=== PATIENT | female | born 1995 | race Caucasian/White ===

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

== ENCOUNTER 2017-04-11 00:23 | Observation (INO) | payer BC, OTHER ==
--- NOTE | 2017-04-11 00:26 | EDPHY ---
H & P HPI/ROS: HPI CHIEF COMPLAINT: Abdominal pain HISTORY OF PRESENT ILLNESS: This patient very pleasant 21-year-old female she is otherwise healthy except for asthma and depression, she presents emergency room with abdominal pain she states achy pain located in right lower quadrant. Initially was comma diffuse and now has localized to right lower quadrant. She has associated nausea with vomiting. No diarrhea. Did vomit 1 time prior to arrival. Pain started 3 hours ago. Pain is currently 8/10. Denies vaginal discharge or being . Denies urinary symptoms. Denies back pain. Pain is mainly located right lower quadrant. Past Medical History: Depression, asthma Past Surgical History: No recent surgery Social History: Denies daily use of drugs alcohol tobacco. [employer] student. Family History: Noncontributory ROS REVIEW OF SYSTEMS: A comprehensive 10 point review of systems is otherwise negative aside from elements mentioned in the history of present illness. Exam Constitutional appears nontoxic triage nursing summary reviewed, vital signs reviewed, awake/alert. Eyes normal conjunctivae and sclera, EOMI, PERRLA. HENT normal inspection, atraumatic, moist mucus membranes, no epistaxis, neck supple/ no meningismus, no raccoon eyes. Respiratory clear to auscultation bilaterally, normal breath sounds, no respiratory distress, no wheezing. Cardiovascular rate normal, regular rhythm, no murmur, no edema, distal pulses normal. Gastrointestinal mild tender palpation right lower quadrant , no rebound, no guarding, normal bowel sounds, no distension, no pulsatile mass. Genitourinary no CVA tenderness. Musculoskeletal no midline vertebral tenderness, full range of motion, no calf swelling, no tenderness of extremities, no meningismus, good pulses, neurovascularly intact. Skin pink, warm, & dry, no rash, skin atraumatic. Neurologic awake, alert and oriented x 3, AAOx3, moves all 4 extremities equally, motor intact, sensory intact, CN II-XII intact, normal cerebellar, normal vision, normal speech. Psychiatric normal mood/affect. Heme/Lymph/Immune no lymphadenopathy. Differential diagnosis includes but is not limited to and in no particular order : Bowel obstruction, appendicitis, gallbladder disease, diverticulitis, colitis , enteritis, perforated viscus, gastritis, GERD, esophagitis, urinary tract infection, pyelonephritis, kidney stones Medical Decision Making: Plan for this patient IV establishment IV fluid bolus , IV fentanyl 50 mcg for pain control, IV Zofran 4 mg for nausea, CBC and abdominal blood work, CT scan abdomen pelvis with IV contrast rule out acute appendicitis. Re-evaluation: 220: CT scan abdomen pelvis with IV contrast called to me by Dr. Zay Kim. No evidence of acute appendicitis. However diffusely can't visualize appendix. Gallbladder and biliary ducts look normal. No evidence ovarian cyst on CT. 0222AM: I did reexamine this patient. She still has ongoing right lower quadrant abdominal pain. Will perform ultrasound of pelvis and gallbladder to complete. Most likely consult General surgery 0336 ultrasound of the right lower quadrant shows acute appendicitis. IV Invanz has been ordered. Patient made NPO. Plan will be for admission the hospital Surgical consult. Ultrasound reviewed to me by Dr. Kim. Normal ovaries. Shows an 8 mm noncompressible hyperemic appendix. Concerning for acute appendicitis 0410: IV Invanz has been order. Surgeries been consult. 0425: Spoke with Dr. AMY Varghese about this patient's ultrasound concerning for acute appendicitis he will see and evaluate the patient. Source: Patient - Medical/Surgical History Other PMH: migraines, depression, asthma - Social History Smoking Status: Never smoked Constitutional: Initial Vital Signs Heart Rate 46 L 04/11/17 00:26 Respiratory Rate 16 04/11/17 00:26 Blood Pressure 125/71 H 04/11/17 00:26 O2 Sat (%) 98 04/11/17 00:26 O2 Delivery Mode Room Air O2 (L/minute) 2 Allergies/Adverse Reactions: No Known Allergies Allergy (Unverified 08/14/16 20:54) Medical Decision Making - Data Points Laboratory Results: Laboratory Results 04/11/17 01:00 04/11/17 01:00 04/11/17 04/11/17 04/11/17 02:20 01:00 01:00 WBC RBC Hgb Hct MCV MCH MCHC RDW Plt Count MPV Neut % (Auto) Lymph % (Auto) [place] % (Auto) Eos % (Auto) Baso % (Auto) Nucleat RBC Rel Count Absolute Neuts (auto) Absolute Lymphs (auto) Absolute Monos (auto) Absolute Eos (auto) Absolute Basos (auto) Absolute Nucleated RBC Immature Gran % Seg Neutrophils % Band Neutrophils % Lymphocytes % Monocytes % Eosinophils % Basophils % Metamyelocytes % Immature Gran # Absolute Seg Neuts Absolute Band Neuts Absolute Lymphocytes Absolute Monocytes Absolute Eosinophils Absolute Basophils Absolute Metamyelocyte RBC/WBC/PLT Morphology Atypical Lymphocytes Platelet Estimate Smear Review By Sodium 142 mEq/L mEq/L (134-144) Potassium 3.8 mEq/L mEq/L (3.5-5.2) Chloride 102 mEq/L mEq/L (97-110) Carbon Dioxide 27 mEq/l mEq/l (22-31) Anion Gap 13 mEq/L mEq/L (8-16) BUN 12 mg/dL mg/dL (7-23) Creatinine 0.8 mg/dL mg/dL (0.6-1.0) Estimated GFR > 60 Glucose 92 mg/dL mg/dL (70-100) Calcium 9.0 mg/dL mg/dL (8.5-10.4) Total Bilirubin 0.5 mg/dL mg/dL (0.1-1.4) Conjugated Bilirubin 0.1 mg/dL mg/dL (0.0-0.5) Unconjugated Bilirubin 0.4 mg/dL mg/dL (0.0-1.1) AST 71 IU/L H IU/L (14-46) ALT 80 IU/L H IU/L (9-52) Alkaline Phosphatase 194 IU/L H IU/L (38-126) Total Protein 7.0 g/dL g/dL (6.3-8.2) Albumin 3.9 g/dL g/dL (3.5-5.0) Lipase 149 IU/L IU/L (23-300) Beta HCG, Qual NEGATIVE Urine Color YELLOW Urine Appearance HAZY Urine pH 7.0 (5.0-7.5) Ur Specific [place] 1.025 (1.002-1.030) Urine Protein NEGATIVE (NEGATIVE) Urine Ketones NEGATIVE (NEGATIVE) Urine Blood 2+ H (NEGATIVE) Urine Nitrate NEGATIVE (NEGATIVE) Urine Bilirubin NEGATIVE (NEGATIVE) Urine Urobilinogen NEGATIVE EU EU (0.2-1.0) Ur Leukocyte Esterase NEGATIVE (NEGATIVE) Urine RBC 10-15 /hpf H /hpf (0-3) Urine WBC 1-3 /hpf /hpf (0-3) Ur Epithelial Cells 3+ /lpf H /lpf (NONE-1+) Urine Bacteria TRACE /hpf H /hpf (NONE SEEN) Urine Glucose NEGATIVE (NEGATIVE) 04/11/17 01:00 WBC 4.33 10^3/uL 10^3/uL (3.80-9.50) RBC 4.76 10^6/uL 10^6/uL (4.18-5.33) Hgb 15.1 g/dL g/dL (12.6-16.3) Hct 41.8 % % (38.0-47.0) MCV 87.8 fL fL (81.5-99.8) MCH 31.7 pg pg (27.9-34.1) MCHC 36.1 g/dL g/dL (32.4-36.7) RDW 12.4 % % (11.5-15.2) Plt Count 154 10^3/uL 10^3/uL (150-400) MPV 9.9 fL fL (8.7-11.7) Neut % (Auto) Not Reported Lymph % (Auto) Not Reported [place] % (Auto) Not Reported Eos % (Auto) Not Reported Baso % (Auto) Not Reported Nucleat RBC Rel Count 0.0 % % (0.0-0.2) Absolute Neuts (auto) Not Reported Absolute Lymphs (auto) Not Reported Absolute Monos (auto) Not Reported Absolute Eos (auto) Not Reported Absolute Basos (auto) Not Reported Absolute Nucleated RBC 0.00 10^3/uL 10^3/uL (0-0.01) Immature Gran % Not Reported Seg Neutrophils % 31 % % Band Neutrophils % 5 % % Lymphocytes % 49 % % Monocytes % 10 % % Eosinophils % 1 % % Basophils % 1 % % Metamyelocytes % 3 % % Immature Gran # Not Reported Absolute Seg Neuts 1.34 10^/uL L 10^/uL (1.70-6.50) Absolute Band Neuts 0.22 10^3/uL 10^3/uL (0.00-0.70) Absolute Lymphocytes 2.12 10^3/uL 10^3/uL (1.00-3.00) Absolute Monocytes 0.43 10^3/uL 10^3/uL (0.30-0.80) Absolute Eosinophils 0.04 10^3/uL 10^3/uL (0.03-0.40) Absolute Basophils 0.04 10^3/uL 10^3/uL (0.02-0.10) Absolute Metamyelocyte 0.13 10^3/mL H 10^3/mL (0.00-0.00) RBC/WBC/PLT Morphology NORMAL (NORMAL) Atypical Lymphocytes 2+ H Platelet Estimate DECREASED L (ADEQ) Smear Review By Pending Sodium Potassium Chloride Carbon Dioxide Anion Gap BUN Creatinine Estimated GFR Glucose Calcium Total Bilirubin Conjugated Bilirubin Unconjugated Bilirubin AST ALT Alkaline Phosphatase Total Protein Albumin Lipase Beta HCG, Qual Urine Color Urine Appearance Urine pH Ur Specific [place] Urine Protein Urine Ketones Urine Blood Urine Nitrate Urine Bilirubin Urine Urobilinogen Ur Leukocyte Esterase Urine RBC Urine WBC Ur Epithelial Cells Urine Bacteria Urine Glucose Medications Given: Discontinued Medications Fentanyl (Sublimaze) 50 mcg IVP EDNOW ONE Stop: 04/11/17 00:53 Last Admin: 04/11/17 00:58 Dose: 50 mcg Hydromorphone HCl (Dilaudid) 1 mg IVP EDNOW ONE Stop: 04/11/17 02:16 Last Admin: 04/11/17 02:18 Dose: 1 mg Hydromorphone HCl (Dilaudid) 1 mg IVP EDNOW ONE Stop: 04/11/17 03:20 Last Admin: 04/11/17 03:30 Dose: 1 mg Sodium Chloride (Ns) 1,000 mls @ 0 mls/hr IV EDNOW ONE; Wide Open PRN Reason: Protocol Stop: 04/11/17 00:53 Last Admin: 04/11/17 00:57 Dose: 1,000 mls Ertapenem 1 gm/ Sodium (Chloride) 100 mls @ 200 mls/hr IV EDNOW ONE PRN Reason: Protocol Stop: 04/11/17 03:52 Last Admin: 04/11/17 04:01 Dose: 100 mls Ondansetron HCl (Zofran) 4 mg IVP EDNOW ONE Stop: 04/11/17 00:53 Last Admin: 04/11/17 00:59 Dose: 4 mg Ondansetron HCl (Zofran) 4 mg IVP EDNOW ONE Stop: 04/11/17 03:30 Last Admin: 04/11/17 03:30 Dose: 4 mg Departure - Departure Disposition: [facility] In[facility] Acute Clinical Impression: Acute appendicitis Qualifiers: Acute appendicitis type: with localized peritonitis Qualified Code(s): K35.3 - Acute appendicitis with localized peritonitis Abdominal pain Qualifiers: Abdominal location: right lower quadrant Qualified Code(s): R10.31 - Right lower quadrant pain Condition: Fair Referrals: NONE *PRIMARY CARE P,. [Primary Care Provider] - As per Instructions
[2017-04-11] MEDS ORDERED: ONDANSETRON 4 MG/2 ML VIAL ONE ×2 (00:43→03:26)
[2017-04-11] MEDS ORDERED: fentaNYL 100 MCG/2 ML INJ ONE ×2 (00:44→06:07)
[2017-04-11] MEDS ORDERED: fentaNYL 100 MCG/2 ML INJ IVP ONE (00:52)
[2017-04-11] MEDS ORDERED: NS 1,000 ML IV ONE (00:52)
[2017-04-11] MEDS ORDERED: ONDANSETRON 4 MG/2 ML VIAL IVP ONE ×2 (00:52→03:29)
[2017-04-11 01:10] LABS: PLATELET COUNT 154 10^3/uL (150-400)
[2017-04-11] MEDS ORDERED: IOPAMIDOL (ISOVUE-300) 100 ML BTL ONE (01:14)
[2017-04-11] MEDS ORDERED: HYDROmorphONE/DILAUDID 1 MG/ML INJ IVP ONE ×2 (02:15→03:19)
[2017-04-11] MEDS ORDERED: HYDROmorphONE/DILAUDID 1 MG/ML INJ ONE (03:19)
[2017-04-11] MEDS ORDERED: ERTAPENEM 1 GM in NS 100 ML IV ONE (03:23)
[2017-04-11] MEDS ORDERED: BUPIVACAINE 0.5% 30 ML SDV ONE (05:29)
[2017-04-11] MEDS ORDERED: LR 1,000 ML IV SCH (05:30)
[2017-04-11] MEDS: PROMETHAZINE HCL 25 MG/ML INJ IV PRN ×3 (05:40→20:58)
[2017-04-11] MEDS ORDERED: PROPOFOL/EMULSION 500 MG/50 ML BOTTLE IV ONE (06:05)
--- NOTE | 2017-04-11 06:15 | PDGENHP ---
History & Physical Chief Complaint: ABD PAIN AND NAUSEA History of Present Illness: 21 FEMALE WITH ABD PAIN AND SEVERE NAUSEA < 12HRS/ US SHOWS ACUTE APPE/ PREG-/ LFTs UP BUT GB US OK/ NO PRIOR ABD SURG/ ADMIT FOR LAP APPE/ RISKS AND OPTIONS FULLY DISCUSSED Pertinent Past, Social, Family History: PMH: WISDOM TEETH. MEDS ANTDEPRESSANT. NKA. ROS: - 10 PT REVIEW, NONSMOKER, IUD. FAM HX: NONCONTRIBUTORY Relevant Physical Exam: GEN: 21 FEMALE IN DISTRESS WITH SEVERE NAUSEA. HEENT: NONICTERIC, NO ORAL LESIONS, NO ADENOPATHY, PERRLA. CHEST CLEAR. COR RR. ABD : MILDLY DISTENDED, TENDER RLQ WITH REBOUND AND GUARDING. EXTR OK. NEURO PHYSIOLOGIC. SKIN WO RASH OR LESIONS Cardiorespiratory Assessment: IMP: ACUTE APPE. PLAN LAP APPE/ RISKS AND OPTIONS FULLY DISCUSSED
--- NOTE | 2017-04-11 06:40 | PDANEPAE ---
ANE History of Present Illness here for lap appendectomy ANE Past Medical History - Cardiovascular History Hx Hypertension: No Hx Arrhythmias: No Hx Chest Pain: No Hx Coronary Artery / Peripheral Vascular Disease: No Hx CHF / Valvular Disease: No Hx Palpitations: No - Pulmonary History Hx COPD: No Hx Asthma/Reactive Airway Disease: No Hx Recent Upper Respiratory Infection: No Hx Oxygen in Use at Home: No Hx Sleep Apnea: No Sleep Apnea Screening Result - Last Documented: Negative - Endocrine History Hx Diabetes: No Hypothyroid: No Hyperthyroid: No - Renal History Hx Renal Disorders: No - Liver History Hx Hepatic Disorders: No - Neurological & Psychiatric Hx Hx Neurological and Psychiatric Disorders: No - Cancer History Hx Cancer: No - Congenital Disorder History Hx Congenital Disorders: No ANE Review of Systems Review of systems is: negative Review of Systems: - Exercise capacity Exercise capacity: >=4 METS ANE Patient History - Allergies Allergies/Adverse Reactions: No Known Allergies Allergy (Unverified 08/14/16 20:54) - Home Medications Home medications: home medication list seen and reviewed - NPO status NPO Status: no food or drink >8 hours NPO Since - Liquids (Date): 04/10/17 NPO Since - Liquids (Time): 19:00 NPO Since - Solids (Date): 04/10/17 NPO Since - Solids (Time): 19:00 - Anes Hx Anes Hx: no prior problems - Smoking Hx Smoking Status: Never smoked ANE Labs/Vital Signs - Labs Result Diagrams: 04/11/17 01:00 04/11/17 01:00 - Vital Signs Blood Pressure: 140/86 Heart Rate: 50 Respiratory Rate: 16 O2 Sat (%): 98 Height: 162.56 cm Weight: 49.895 kg ANE Physical Exam - Airway Neck exam: FROM Mallampati Score: Class 1 - Pulmonary Pulmonary: no respiratory distress - Cardiovascular Cardiovascular: regular rate and rhythym - ASA Status ASA Status: II, E ANE Anesthesia Plan Anesthesia Plan: general endotracheal anesthesia Urgent/Emergent Case: Ariana kaiser completed preop but documented later for safe timely pt care
[2017-04-11] MEDS ORDERED: PROPOFOL 200 MG/20 ML VIAL ONE (06:52)
[2017-04-11] MEDS ORDERED: ALBUTEROL 3 ML DEYVIAL IH PRN (07:16)
[2017-04-11] MEDS ORDERED: ONDANSETRON 4 MG/2 ML VIAL IVP PRN (07:16)
[2017-04-11] MEDS ORDERED: NALOXONE HCL 0.4 MG/ML INJ IVP PRN (07:16)
[2017-04-11] MEDS ORDERED: PROMETHAZINE HCL 25 MG/ML INJ IVP PRN (07:16)
[2017-04-11] MEDS ORDERED: HYDROmorphONE/DILAUDID 1 MG/ML INJ IVP PRN (07:16)
[2017-04-11] MEDS ORDERED: LR 500 ML IV PRN (07:16)
--- NOTE | 2017-04-11 07:20 | POSTANESTH ---
Post Anesthetic Evaluation Cardiovascular Status: Normal, Stable Respiratory Status: Normal, Stable Level of Consciousness/Mental Status: Can Participate in Eval Pain Control: Adequate, Prn Tx Ordered Nausea/Vomiting Control: Adequate, Prn Tx Ordered Complications Possibly Related to Anesthesia: None Noted
--- NOTE | 2017-04-11 07:24 | POSTOPPROG ---
Post Op Note Date of Operation: 04/11/17 Surgeon: Jf Varghese Anesthesiologist: BECCA Anesthesia: GET(General Endotracheal) Pre-op Diagnosis: ACUTE APPE Post-op Diagnosis: SAME Indication: PAIN Procedure: LAP APPE Findings: ACUTE APPE Inf/Abcess present in the surg proc area at time of surgery?: Yes Depth: Organ Space EBL: Minimal Complications: 0 Specimen(s): APPENDIX
[2017-04-11] MEDS: D5W 1/2 NS W/ 20 KCl/L 1,000 ML IV SCH ×2 (08:57→20:57)
[2017-04-11] MEDS: KETOROLAC 15 MG/1 ML SDV IVP SCH ×2 (11:38→18:23)
--- NOTE | 2017-04-11 13:45 | SOAPPROG ---
SOAP Progress Note Assessment/Plan: Assessment/Plan: 21 Y F s/p lap appy, POD#0. AFVSS. Wounds intact. Pain controlled. Continue routine post op care. Dispo: pending. Likely tomorrow, potentially later this evening. S: no complaints. O: alert, nad, sleepy no wob rrr abd soft, inc cdi 04/11/17 13:43 Objective: Vital Signs Temp Pulse Resp BP Pulse Ox 36.5 C 59 L 18 114/73 97 04/11/17 13:08 04/11/17 13:08 04/11/17 13:08 04/11/17 13:08 04/11/17 13:08 04/10/17 04/11/17 04/12/17 05:59 05:59 05:59 Intake Total 100 1125 Output Total 305 Balance 100 820 ICD10 Worksheet Patient Problems: Problems Problem Status Onset Abdominal pain Acute Acute appendicitis Acute
--- NOTE | 2017-04-11 18:19 | ASMTCASEMG ---
Living Arrangements What is your living Answers: With Other (Not Family) arrangement? Who do you live with? Type Of Residence What kind of residence do Answers: Dormitory you live in? Case Management Evaluation Functional: Able to Answers: Yes return Home with Prior Level of Function/Care Discharge Plan Comments Coordination Status Comments Notes: Patient here for acute appy having surgery today. patient should discharge on . 04/12/2017 with no additional needs. Case managment will follow. Date Signed: 04/11/2017 06:18 PM Electronically Signed By:VARUN Mondragon
[2017-04-11 20:35] VITALS: RESP 16
[2017-04-11] MEDS: OXYCODONE/APAP 5/325 TAB PO PRN ×2 (20:57→22:08)
[2017-04-12] MEDS: KETOROLAC 15 MG/1 ML SDV IVP SCH ×3 (01:49→11:12)
[2017-04-12 03:15] VITALS: PULSE 46; O2SAT 95
[2017-04-12 07:56] VITALS: BP 99/62; TEMP 97.8
--- NOTE | 2017-04-12 08:00 | SOAPPROG ---
SOAP Progress Note Assessment/Plan: Assessment/Plan: 21 Y F s/p lap appy, POD#1. doing well. tolerating diet. pain controlled. d/c to home today. rx norco, ibuprofen. S: no complaints. O: alert, nad, sleepy ctab rrr abd soft, inc cdi, +BS 04/12/17 07:59 Objective: Vital Signs Temp Pulse Resp BP Pulse Ox 36.6 C 46 L 16 99/62 L 95 04/12/17 07:55 04/12/17 07:55 04/12/17 07:55 04/12/17 07:55 04/12/17 07:55 04/11/17 04/12/17 04/13/17 05:59 05:59 05:59 Intake Total 100 2775 Output Total 305 Balance 100 2470 ICD10 Worksheet Patient Problems: Problems Problem Status Onset Abdominal pain Acute Acute appendicitis Acute
--- NOTE | 2017-04-12 12:00 | ASDISCHSUM ---
Discharge Information Plan Status:Home with No Needs Medically Cleared to Leave: Discharge Date: D/C Disposition: ADT D/C Disposition:Home, Routine, Self-Care Projected Discharge Date: Transportation at D/C: Discharge Delay Reason: Follow-Up Date: Discharge Slot: Final Diagnosis: Placement Information Patient Contact Information Contact Name:MADELYN Relationship:Mother Address: Home Phone: City: [facility] Phone: [facility] Code: Email: Financial Information Financial Class:HMO and PPO Plans Primary Plan Desc: OUT OF STATE PPO Primary Plan Number:[id number] Secondary Plan Desc: Secondary Plan Number: Assessment Information [facility] Initial CM Assessment Living Arrangements What is your living Answers: With Other (Not Family) arrangement? Who do you live with? Type Of Residence What kind of residence do Answers: Dormitory you live in? Case Management Evaluation Functional: Able to Answers: Yes return Home with Prior Level of Function/Care Discharge Plan Comments Coordination Status Comments Notes: Patient here for acute appy having surgery today. patient should discharge on . 04/12/2017 with no additional needs. Case managment will follow. Date Signed: 04/11/2017 06:18 PM Electronically Signed By:VARUN Mondragon Intervention Information
--- NOTE | 2017-04-12 12:00 | ASDISCHSUM ---
Discharge Information Plan Status:Home with No Needs Medically Cleared to Leave: Discharge Date: D/C Disposition: ADT D/C Disposition:Home, Routine, Self-Care Projected Discharge Date: Transportation at D/C: Discharge Delay Reason: Follow-Up Date: Discharge Slot: Final Diagnosis: Placement Information Patient Contact Information Contact Name:MADELYN Relationship:Mother Address: Home Phone: City: [facility] Phone: [facility] Code: Email: Financial Information Financial Class:HMO and PPO Plans Primary Plan Desc: OUT OF STATE PPO Primary Plan Number:[id number] Secondary Plan Desc: Secondary Plan Number: Assessment Information [facility] Initial CM Assessment Living Arrangements What is your living Answers: With Other (Not Family) arrangement? Who do you live with? Type Of Residence What kind of residence do Answers: Dormitory you live in? Case Management Evaluation Functional: Able to Answers: Yes return Home with Prior Level of Function/Care Discharge Plan Comments Coordination Status Comments Notes: Patient here for acute appy having surgery today. patient should discharge on . 04/12/2017 with no additional needs. Case managment will follow. Date Signed: 04/11/2017 06:18 PM Electronically Signed By:VARUN Mondragon Intervention Information
--- NOTE | 2017-04-12 12:00 | ASDISCHSUM ---
Discharge Information Plan Status:Home with No Needs Medically Cleared to Leave: Discharge Date: D/C Disposition: ADT D/C Disposition:Home, Routine, Self-Care Projected Discharge Date: Transportation at D/C: Discharge Delay Reason: Follow-Up Date: Discharge Slot: Final Diagnosis: Placement Information Patient Contact Information Contact Name:MADELYN Relationship:Mother Address: Home Phone: City: [facility] Phone: [facility] Code: Email: Financial Information Financial Class:HMO and PPO Plans Primary Plan Desc: OUT OF STATE PPO Primary Plan Number:[id number] Secondary Plan Desc: Secondary Plan Number: Assessment Information [facility] Initial CM Assessment Living Arrangements What is your living Answers: With Other (Not Family) arrangement? Who do you live with? Type Of Residence What kind of residence do Answers: Dormitory you live in? Case Management Evaluation Functional: Able to Answers: Yes return Home with Prior Level of Function/Care Discharge Plan Comments Coordination Status Comments Notes: Patient here for acute appy having surgery today. patient should discharge on . 04/12/2017 with no additional needs. Case managment will follow. Date Signed: 04/11/2017 06:18 PM Electronically Signed By:VARUN Mondragon Intervention Information
== END 2017-04-12 12:50 | disposition home or self-care (01) ==
LOC: INTOOBSV 04:21 → F1N 04:56
PROVIDERS: ADMIT Surgery; ATTEND Surgery
PROC: 0DTJ4ZZ Resection of Appendix, Percutaneous Endoscopic Approach (ICD-10-PCS; principal; 2017-04-11 06:45)
DX: K35.80 Unspecified acute appendicitis (principal); T83.32XA Displacement of intrauterine contraceptive device, initial encounter; F32.9 Major depressive disorder, single episode, unspecified; J45.909 Unspecified asthma, uncomplicated
CPT/HCPCS: 44970; 74177; 76700; 76856; 96361; 96374; 96375; 96376; 99285; G0378; J1170; J1335; J1885; J2405; J2550; J2704; J3010; Q9967

== ENCOUNTER 2017-07-08 14:37 | Emergency (ER) | payer BC ==
[2017-07-08 14:43] VITALS: BP 91/67; PULSE 71; RESP 16; TEMP 97.9; O2SAT 96
[2017-07-08] MEDS ORDERED: IBUPROFEN 600 MG TAB PO ONE (14:49)
--- NOTE | 2017-07-08 15:01 | EDPHY ---
H & P Stated Complaint: rolled ankle last night,heard a loud snap Time Seen by Provider: 07/08/17 14:45 HPI/ROS: CHIEF COMPLAINT: Left ankle pain HISTORY OF PRESENT ILLNESS: The patient is a 22-year-old female who was wearing heels last night and twisted her left ankle. She states that she heard a pop. This morning she has swelling and pain to the lateral malleolus and distally. She denies foot pain. She denies medial or anterior pain. She denies knee pain. She is able to limp. REVIEW OF SYSTEMS: Constitutional: denies: chills, fever, recent illness, recent injury EENTM: denies: blurred vision, double vision, nose congestion Respiratory: denies: cough, shortness of breath Cardiac: denies: chest pain, irregular heart rate, lightheadedness, palpitations Gastrointestinal/Abdominal: denies: abdominal pain, diarrhea, nausea, vomiting, blood streaked stools Genitourinary: denies: dysuria, frequency, hematuria, pain Musculoskeletal: See HPI Skin: denies: lesions, rash, jaundice, bruising Neurological: denies: headache, numbness, paresthesia, tingling, dizziness, weakness Hematologic/Lymphatic: denies: blood clots, easy bleeding, easy bruising Immunologic/allergic: denies: HIV/AIDS, transplant EXAM: GENERAL: Well-appearing, well-nourished and in no acute distress. HEAD: Atraumatic, normocephalic. EYES: Pupils equal round and reactive to light, extraocular movements intact, sclera anicteric, conjunctiva are normal. ENT: TMs normal, nares patent, oropharynx clear without exudates. Moist mucous membranes. NECK: Normal range of motion, supple without lymphadenopathy or JVD. LUNGS: Breath sounds clear to auscultation bilaterally and equal. No wheezes rales or rhonchi. HEART: Regular rate and rhythm without murmurs, rubs or gallops. ABDOMEN: Soft, nontender, normoactive bowel sounds. No guarding, no rebound. No masses appreciated. BACK: No CVA tenderness, no spinal tenderness, step-offs or deformities EXTREMITIES: Swelling distal to the lateral malleolus. Some bony tenderness. No erythema. Normal sensation and pulses distally. Normal capillary refill. NEUROLOGICAL: Cranial nerves II through XII grossly intact. Normal speech, normal gait. 5/5 strength, normal movement in all extremities, normal sensation PSYCH: Normal mood, normal affect. SKIN: Warm, dry, normal turgor, no visible rashes or lesions. Source: Patient Exam Limitations: No limitations - Personal History LMP (Females 10-55): IUD In Place Current Tetanus/Diphtheria Vaccine: Yes Current Tetanus Diphtheria and Acellular Pertussis (TDAP): Yes - Medical/Surgical History Hx Asthma: Yes Hx Chronic Respiratory Disease: No Hx Diabetes: No Hx Cardiac Disease: No Hx Renal Disease: No Hx Cirrhosis: No Hx Alcoholism: No Hx HIV/AIDS: No Hx Splenectomy or Spleen Trauma: No Other PMH: migraines, depression, asthma - Family History Significant Family History: No pertinent family hx - Social History Smoking Status: Never smoked Alcohol Use: Sober Constitutional: Initial Vital Signs Temperature (C) 36.6 C 07/08/17 14:41 Heart Rate 71 07/08/17 14:41 Respiratory Rate 16 07/08/17 14:41 Blood Pressure 91/67 L 07/08/17 14:41 O2 Sat (%) 96 07/08/17 14:41 O2 Delivery Mode Room Air Allergies/Adverse Reactions: No Known Allergies Allergy (Unverified 08/14/16 20:54) Home Medications: Medication Instructions Recorded Doxycycline Monohydrate 07/08/17 Hydrocodone/APAP 5/325 [[place] 1 - 2 tab PO Q4H PRN #7 tab 07/08/17 5/325 (RX)] Medical Decision Making - Diagnostics Imaging Results: Imaging Impressions Ankle X-Ray 07/08/17 14:46 Impression: Lateral ankle sprain. No acute fracture. Imaging: I viewed and interpreted images myself Procedures: Procedure: Splint placement. A air ankle splint was applied. After application of the splint I returned and re-examined the patient. The splint was adequately immobilizing the joint and distal to the splint the patient's circulation and sensation was intact. ED Course/Re-evaluation: Patient's x-rays were reviewed at the bedside. No obvious fracture seen. We discussed treatment for sprains. I will place her in a brace and give her crutches as necessary. I advised her to weightbearing as tolerated and take anti-inflammatories, elevate, ice and also rest. Will also give her Vicodin to take at night. She is happy with this plan and declines any further workup or testing at this time Differential Diagnosis: Partial list of the Differential diagnosis considered include but were not limited to; ankle sprain, fracture and although unlikely based on the history and physical exam, I also considered ft fracture, Achilles rupture, vascular injury, nerve injury, infection. I discussed these differential diagnoses and the plan with the patient as well as the usual and expected course. The patient understands that the diagnosis is provisional and that in medicine we are not always correct and that further workup is often warranted. Usual and customary warnings were given. All of the patient's questions were answered. The patient was instructed to return to the emergency department should the symptoms at all worsen or return, otherwise to followup with the physician as we discussed. - Data Points Medications Given: Discontinued Medications Ibuprofen (Motrin) 600 mg PO EDNOW ONE Stop: 07/08/17 14:50 Last Admin: 07/08/17 14:51 Dose: 600 mg Departure - Departure Disposition: Home, Routine, Self-Care Clinical Impression: Sprain of left ankle Qualifiers: Encounter type: initial encounter Involved ligament of ankle: anterior talofibular ligament Qualified Code(s): S93.492A - Sprain of other ligament of left ankle, initial encounter Condition: Fair Instructions: Ankle Sprain (DC) Referrals: Stephen Ivey MD [Medical Doctor] - 5-7 days, if not improved Prescriptions: Hydrocodone/APAP 5/325 [[place] 5/325 (RX)] 1 - 2 tab PO Q4H PRN #7 tab PRN Reason: Pain, Moderate
== END 2017-07-08 15:12 | disposition home or self-care (01) ==
DX: S93.492A Sprain of other ligament of left ankle, initial encounter (principal); J45.909 Unspecified asthma, uncomplicated; X58.XXXA Exposure to other specified factors, initial encounter

== ENCOUNTER 2017-07-22 04:23 | Inpatient (IN) | payer BC ==
--- NOTE | 2017-07-22 04:25 | EDPHY ---
H & P Source: Patient - Medical/Surgical History Hx Asthma: Yes Hx Chronic Respiratory Disease: No Hx Diabetes: No Hx Cardiac Disease: No Hx Renal Disease: No Hx Cirrhosis: No Hx Alcoholism: No Hx HIV/AIDS: No Hx Splenectomy or Spleen Trauma: No Other PMH: migraines, depression, asthma - Social History Smoking Status: Never smoked HPI/ROS: HPI CHIEF COMPLAINT: Self-inflicted left arm laceration, anxiety, depression, alcohol intoxication HISTORY OF PRESENT ILLNESS: Patient is a 22-year-old female, [employer] student, she presents to the emergency room with a self-inflicted left arm laceration. She presents by private vehicle with her roommate. Her roommate reports she has a history of anxiety and depression and that she has been out drinking alcohol this evening and after returning home somehow cut her left arm. (self-inflicted with razor blade) She knocked on her door and got upset, was anxious crying and screaming and was brought to the emergency room. Upon arrival to the emergency room the patient is hyperventilating she is unable to tell me any of her history the history comes from her roommate at bedside. She appears very anxious. The left forearm she has laceration horizontally oriented self-inflicted with a razor blade there are multiple superficial lacerations present that do not need suture, however there is 1 deeper that is approximately 4 cm in horizontal length. No tendon or arterial involvement on exam. Past Medical History: History of anxiety and depression untreated Past Surgical History: No recent surgery Social History: [employer] student, alcohol this evening. Family History: Noncontributory ROS REVIEW OF SYSTEMS: Limited due to patient's mental state of acute anxiety, crying. Intoxication Exam Constitutional anxious, tearful, crying, somewhat agitated, intoxicated triage nursing summary reviewed, vital signs reviewed, awake/alert. Eyes normal conjunctivae and sclera, EOMI, PERRLA. HENT normal inspection, atraumatic, moist mucus membranes, no epistaxis, neck supple/ no meningismus, no raccoon eyes. Respiratory clear to auscultation bilaterally, normal breath sounds, no respiratory distress, no wheezing. Cardiovascular rate normal, regular rhythm, no murmur, no edema, distal pulses normal. Gastrointestinal soft, non-tender, no rebound, no guarding, normal bowel sounds, no distension, no pulsatile mass. Genitourinary no CVA tenderness. Musculoskeletal no midline vertebral tenderness, full range of motion, no calf swelling, no tenderness of extremities, no meningismus, good pulses, neurovascularly intact. Skin To the left forearm she has laceration horizontally oriented self- inflicted with a razor blade there are multiple superficial lacerations present that do not need suture however there is 1 deeper 1 approximately 4 cm in horizontal length. No tendon or arterial involvement on exam. Neurologic smells of alcohol, awake, alert and oriented x 3, AAOx3, moves all 4 extremities equally, motor intact, sensory intact, CN II-XII intact, normal cerebellar, normal vision, normal speech. Psychiatric anxious, crying, somewhat agitated, intoxicated Heme/Lymph/Immune no lymphadenopathy. Differential Diagnosis: Includes but is not limited to in a particular order self-inflicted left arm laceration, self-harm, depression, mood disorder, acute alcohol intoxication Medical Decision Making: Plan for this patient she will have an IV established with blood draw for medical clearance should be placed on M1 hold for laceration self-inflicted to her left arm with intention to harm, check alcohol level and drug screen and re-evaluate. Re-evaluation: 0430: M1 hold placed by myself. Laceration Repair Procedure: Verbal Consent was obtained, Under sterile conditions, The patient had lidocaine with epinephrine used approximately 4ccs to local anesthetize the left forearm horizontal 4CM Laceration. The wound was copiously irrigated with sterile fluid, the wound was explored for foreign bodies there were none visualized, the wound was explored with a sterile glove to the base. There are no deep structures involved, including no arterial injury. FOUR 6.O PROLENE interrupted Sutures were placed in this patient's laceration. She had good close approximation of the wound edges. She Tolerated this well. Understands keep the wound, clean, dry, protected. Sutures removed in 12-14 days. 0518: Serum alcohol level 105. 0700AM: Signed over to Dr. Eddy. Patient on M1 hold needs mental health evaluation once sober. Drug screen noted to be positive for cocaine. (Yogesh Del Toro) Constitutional: Initial Vital Signs Temperature (C) 37.0 C 07/22/17 04:31 Heart Rate 93 07/22/17 04:31 Respiratory Rate 25 H 07/22/17 04:31 Blood Pressure 115/74 07/22/17 04:31 O2 Sat (%) 100 07/22/17 04:31 O2 Delivery Mode Room Air O2 (L/minute) 2 Allergies/Adverse Reactions: No Known Allergies Allergy (Unverified 07/22/17 04:31) Home Medications: Medication Instructions Recorded Doxycycline Monohydrate 07/08/17 Hydrocodone/APAP 5/325 [[place] 1 - 2 tab PO Q4H PRN #7 tab 07/08/17 5/325 (RX)] Medical Decision Making Other Provider: Care assumed at 6:30 a.m. With plan for psychiatric evaluation once clinically sober. The patient will be transferred to [facility] for inpatient psychiatric hospital bed not available at this facility, in stable condition; accepting physician is Dr. Zuñiga. (Doug Eddy) - Data Points Laboratory Results: Laboratory Results 07/22/17 04:48 07/22/17 04:48 07/22/17 07/22/17 07/22/17 05:45 04:48 04:48 WBC RBC Hgb Hct MCV MCH MCHC RDW Plt Count MPV Neut % (Auto) Lymph % (Auto) [place] % (Auto) Eos % (Auto) Baso % (Auto) Nucleat RBC Rel Count Absolute Neuts (auto) Absolute Lymphs (auto) Absolute Monos (auto) Absolute Eos (auto) Absolute Basos (auto) Absolute Nucleated RBC Immature Gran % Immature Gran # Sodium 146 mEq/L H mEq/L (135-145) Potassium 3.8 mEq/L mEq/L (3.5-5.2) Chloride 112 mEq/L H mEq/L (97-110) Carbon Dioxide 14 mEq/l L mEq/l (22-31) Anion Gap 20 mEq/L H mEq/L (8-16) BUN 11 mg/dL mg/dL (7-23) Creatinine 0.8 mg/dL mg/dL (0.6-1.0) Estimated GFR > 60 Glucose 97 mg/dL mg/dL (70-100) Calcium 9.9 mg/dL mg/dL (8.5-10.4) Beta HCG, Qual NEGATIVE Urine Opiates Screen NEGATIVE (NEGATIVE) Urine Barbiturates NEGATIVE (NEGATIVE) Ur Phencyclidine Scrn NEGATIVE (NEGATIVE) Ur Amphetamine Screen NEGATIVE (NEGATIVE) U Benzodiazepines Scrn NEGATIVE (NEGATIVE) Urine Cocaine Screen NON-NEGATIVE H (NEGATIVE) U Marijuana (THC) Screen NEGATIVE (NEGATIVE) Ethyl Alcohol 105 mg/dL H mg/dL (0-10) 07/22/17 04:48 WBC 7.90 10^3/uL 10^3/uL (3.80-9.50) RBC 5.07 10^6/uL 10^6/uL (4.18-5.33) Hgb 15.5 g/dL g/dL (12.6-16.3) Hct 43.1 % % (38.0-47.0) MCV 85.0 fL fL (81.5-99.8) MCH 30.6 pg pg (27.9-34.1) MCHC 36.0 g/dL g/dL (32.4-36.7) RDW 12.3 % % (11.5-15.2) Plt Count 250 10^3/uL 10^3/uL (150-400) MPV 9.3 fL fL (8.7-11.7) Neut % (Auto) 55.7 % % (39.3-74.2) Lymph % (Auto) 39.0 % % (15.0-45.0) [place] % (Auto) 4.2 % L % (4.5-13.0) Eos % (Auto) 0.4 % L % (0.6-7.6) Baso % (Auto) 0.3 % % (0.3-1.7) Nucleat RBC Rel Count 0.0 % % (0.0-0.2) Absolute Neuts (auto) 4.41 10^3/uL 10^3/uL (1.70-6.50) Absolute Lymphs (auto) 3.08 10^3/uL H 10^3/uL (1.00-3.00) Absolute Monos (auto) 0.33 10^3/uL 10^3/uL (0.30-0.80) Absolute Eos (auto) 0.03 10^3/uL 10^3/uL (0.03-0.40) Absolute Basos (auto) 0.02 10^3/uL 10^3/uL (0.02-0.10) Absolute Nucleated RBC 0.00 10^3/uL 10^3/uL (0-0.01) Immature Gran % 0.4 % % (0.0-1.1) Immature Gran # 0.03 10^3/uL 10^3/uL (0.00-0.10) Sodium Potassium Chloride Carbon Dioxide Anion Gap BUN Creatinine Estimated GFR Glucose Calcium Beta HCG, Qual Urine Opiates Screen Urine Barbiturates Ur Phencyclidine Scrn Ur Amphetamine Screen U Benzodiazepines Scrn Urine Cocaine Screen U Marijuana (THC) Screen Ethyl Alcohol Medications Given: Discontinued Medications Lorazepam (Ativan) 1 mg PO EDNOW ONE Stop: 07/22/17 04:37 Last Admin: 07/22/17 04:42 Dose: 1 mg Departure - Departure Disposition: [facility] IP Clinical Impression: Cocaine abuse Arm laceration Qualifiers: Encounter type: initial encounter Laterality: left Qualified Code(s): S41.112A - Laceration without foreign body of left upper arm, initial encounter Alcohol intoxication Qualifiers: Complication of substance-induced condition: uncomplicated Qualified Code(s): F10.920 - Alcohol use, unspecified with intoxication, uncomplicated Condition: Fair Instructions: Care For Your Stitches (ED), Laceration (ED), Cocaine Abuse (ED) Additional Instructions: 1. Sutures need to be removed in 12-14 days. 2. Keep her wound clean, protected and dry. Wash with warm soapy water. Gently. Referrals: Patient,NotPresent [Primary Care Provider] - As per Instructions
[2017-07-22] MEDS ORDERED: LORazepam 1 MG TAB PO ONE (04:36)
[2017-07-22 04:57] LABS: PLATELET COUNT 250 10^3/uL (150-400)
[2017-07-22] MEDS ORDERED: NICOTINE POLACRILEX 2 MG GUM B PRN (16:00)
[2017-07-22] MEDS ORDERED: MAGNESIUM HYDROXIDE 30 ML UDCUP PO PRN (16:00)
[2017-07-22] MEDS ORDERED: OLANZapine DISINTEGR 10 MG TAB PO PRN (16:00)
[2017-07-22] MEDS ORDERED: MAG HYDROX/AL HYDROX/SIMETH 30 ML UDCUP PO PRN (16:00)
[2017-07-22] MEDS ORDERED: ACETAMINOPHEN 325 MG TAB PO PRN (16:00)
[2017-07-22] MEDS: LORazepam 0.5 MG TAB PO PRN (22:30)
[2017-07-22] MEDS: MELATONIN 3 MG TAB PO PRN (22:30)
[2017-07-23 06:58] VITALS: O2SAT 98
--- NOTE | 2017-07-23 08:41 | PDHOSCONS ---
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 Her insurance only covers a very small portion of this particular medicine. Last night she went out and had asked some alcohol and cocaine and got very upset and anxious. She went home and got even more anxious and sad and up some cutting on her left arm with a razor. She was seen in the ER where the wounds were attended to with no evidence of arterial venous or tendon injury. She presented to the ER. She denied any suicidal ideation. She has been admitted to the [facility] where I am seeing her. The patient denies having any recent episodes such as assault or rape or any other event that would require evaluation or assessment or assistance here. She has tested negative for in the ER. She denies any other symptoms of acute illness on of comprehensive review. Her substance use is intermittent not daily and she does not use any intravenous History Information - Allergies/Home Medication List Allergies/Adverse Reactions: No Known Allergies Allergy (Unverified 07/22/17 04:31) Home Medications: Doxycycline Hyclate [Vibramycin 100 MG (*)] 100 mg PO DAILY 07/22/17 [Last Taken Unknown] I have personally reviewed and updated: family history, medical history, social history, surgical history - Past Medical History asthma Additional medical history: Milder not currently needing to use any inhalers - Surgical History Reports: no pertinent surgical hx - Family History Positive for: non-pertinent - Social History Smoking Status: Never smoked Alcohol Use: Occasionally Drug Use: Cocaine (Occasional never IV) Review of Systems Review of Systems: ROS: 10pt was reviewed & negative except for what was stated in HPI & below Physical Exam Physical Exam: Temp Pulse Resp BP Pulse Ox 36.3 C 44 L 14 104/63 98 07/23/17 06:00 07/23/17 06:00 07/23/17 06:00 07/23/17 06:00 07/23/17 06:00 Constitutional: no apparent distress, appears nourished, not in pain, other ( Remorseful over her episode yesterday) Eyes: PERRL, anicteric sclera, EOMI Ears, Nose, Mouth, Throat: moist mucous membranes, hearing normal Cardiovascular: regular rate and rhythym, no murmur, rub, or gallop, No edema Respiratory: no respiratory distress, no rales or rhonchi, clear to auscultation Gastrointestinal: normoactive bowel sounds, soft, non-tender abdomen, no palpable masses Genitourinary: no bladder fullness Skin: warm, normal color, other (On her flexor surface of her left forearm around midshaft, she has an area of skin which appears scarred from previous cutting. There are 6 new horizontal lacerations that are self-inflicted in this area now. There is no bleeding, no evidence of infection. There is suture approximating 1 of these lesions. There is no other evidence of cutting herself injury at this time) Neurologic: AAOx3, CN II-XII Intact, No weakness Psychiatric: interacting appropriately, depressed, poor insight, poor judgement , No encephalopathic, No suicidal ideation, No agitated Lab Data & Imaging Review 07/22/17 04:48 07/22/17 04:48 WBC 7.90 10^3/uL (3.80-9.50) 07/22/17 04:48 RBC 5.07 10^6/uL (4.18-5.33) 07/22/17 04:48 Hgb 15.5 g/dL (12.6-16.3) 07/22/17 04:48 Hct 43.1 % (38.0-47.0) 07/22/17 04:48 MCV 85.0 fL (81.5-99.8) 07/22/17 04:48 MCH 30.6 pg (27.9-34.1) 07/22/17 04:48 MCHC 36.0 g/dL (32.4-36.7) 07/22/17 04:48 RDW 12.3 % (11.5-15.2) 07/22/17 04:48 Plt Count 250 10^3/uL (150-400) 07/22/17 04:48 MPV 9.3 fL (8.7-11.7) 07/22/17 04:48 Neut % (Auto) 55.7 % (39.3-74.2) 07/22/17 04:48 Lymph % (Auto) 39.0 % (15.0-45.0) 07/22/17 04:48 [place] % (Auto) 4.2 % (4.5-13.0) L 07/22/17 04:48 Eos % (Auto) 0.4 % (0.6-7.6) L 07/22/17 04:48 Baso % (Auto) 0.3 % (0.3-1.7) 07/22/17 04:48 Nucleat RBC Rel Count 0.0 % (0.0-0.2) 07/22/17 04:48 Absolute Neuts (auto) 4.41 10^3/uL (1.70-6.50) 07/22/17 04:48 Absolute Lymphs (auto) 3.08 10^3/uL (1.00-3.00) H 07/22/17 04:48 Absolute Monos (auto) 0.33 10^3/uL (0.30-0.80) 07/22/17 04:48 Absolute Eos (auto) 0.03 10^3/uL (0.03-0.40) 07/22/17 04:48 Absolute Basos (auto) 0.02 10^3/uL (0.02-0.10) 07/22/17 04:48 Absolute Nucleated RBC 0.00 10^3/uL (0-0.01) 07/22/17 04:48 Immature Gran % 0.4 % (0.0-1.1) 07/22/17 04:48 Immature Gran # 0.03 10^3/uL (0.00-0.10) 07/22/17 04:48 Sodium 146 mEq/L (135-145) H 07/22/17 04:48 Potassium 3.8 mEq/L (3.5-5.2) 07/22/17 04:48 Chloride 112 mEq/L (97-110) H 07/22/17 04:48 Carbon Dioxide 14 mEq/l (22-31) L 07/22/17 04:48 Anion Gap 20 mEq/L (8-16) H 07/22/17 04:48 BUN 11 mg/dL (7-23) 07/22/17 04:48 Creatinine 0.8 mg/dL (0.6-1.0) 07/22/17 04:48 Estimated GFR > 60 07/22/17 04:48 Glucose 97 mg/dL (70-100) 07/22/17 04:48 Calcium 9.9 mg/dL (8.5-10.4) 07/22/17 04:48 Beta HCG, Qual NEGATIVE 07/22/17 04:48 Urine Opiates Screen NEGATIVE (NEGATIVE) 07/22/17 05:45 Urine Barbiturates NEGATIVE (NEGATIVE) 07/22/17 05:45 Ur Phencyclidine Scrn NEGATIVE (NEGATIVE) 07/22/17 05:45 Ur Amphetamine Screen NEGATIVE (NEGATIVE) 07/22/17 05:45 U Benzodiazepines Scrn NEGATIVE (NEGATIVE) 07/22/17 05:45 Urine Cocaine Screen NON-NEGATIVE (NEGATIVE) H 07/22/17 05:45 U Marijuana (THC) Screen NEGATIVE (NEGATIVE) 07/22/17 05:45 Ethyl Alcohol 105 mg/dL (0-10) H 07/22/17 04:48 Assessment & Plan Assessment: 1- self-inflicted lacerations to left arm, no evidence of tendon or vascular injury, no evidence of infection -these wound should be kept covered to avoid infection, and should be kept dry until Monday 2 days from now so she must shower with dry covering -I have instructed the patient on symptoms and examination findings to watch for in terms of any potential infection and that she should seek prompt attention if there is any concern 2- depression currently untreated as she could not afford her antidepressant, associated anxiety disorder 3- polysubstance abuse with cocaine and alcohol -this is a intermittent use disorder for her and she does not use any IV but this will clearly aggravate her depression and anxiety symptoms and strongly recommended that she maintain sobriety
[2017-07-23] MEDS: DOXYCYCLINE HYCLATE 100 MG CAP/TAB PO SCH (09:01)
--- NOTE | 2017-07-23 15:56 | BAPA ---
[f rep st] ADMISSION PSYCHIATRIC ASSESSMENT DATE OF SERVICE: 07/23/2017 CHIEF COMPLAINT: "I am always sad and it doesn't ever go away. I feel sad and I feel like if I weren't here no one would notice." HISTORY OF PRESENT ILLNESS: The patient is a 22-year-old [employer] student from [place]. She has a history of depression and anxiety. She came voluntarily by private vehicle with her roommate. The ED doctor placed an M1 hold on the patient stating "patient with self-inflicted cut to left arm, thoughts of depression, anxiety, alcohol withdrawal". Patient had been out drinking and used cocaine for the first time in a long time and then she got back home, she became very depressed. The patient said that she is always depressed, but last night she felt especially bad. The patient knocked on her roommates door was anxious, crying and screaming showed her where she had cut herself with a razor blade, so the roommate brought her to the ED. The ED doctor, Dr. Yogesh Del Toro, states that the patient knocked on her roommates door and "got upset, was anxious, crying and screaming and was brought to the emergency room". According to Dr. Del Toro, upon arrival in the emergency room, "the patient is hyperventilating, she is unable to tell me any other history, the history comes from her roommate at the bedside". Dr. Del Toro noted that the left forearm has a horizontal laceration self-inflicted with a razor blade. There are multiple superficial lacerations present that do not need sutures. However, there is 1 deeper laceration that is approximately 4 cm in horizontal length. No tendon or arterial involvement on exam. The patient told cutter inspector in the ED last night, "I feel like nobody likes me, like I don't matter". She said she knows that her parents and roommate care about her. The patient had a miscarriage this past summer and it is still weighing on her, especially the fact that her boyfriend broke up with her before she could tell him. When this MD met with the patient on the inpatient behavioral services unit on 3 , she was initially bright affect and cheerful, the MD asked to speak to her when she was in our therapy group and he observed that the patient had a positive and cheerful affect. She was pleasant and cooperative. But when MD and patient were talking privately, the patient said that she thought she was going to be going home today when MD explained that she was on an M1 hold and that required her to be in the hospital for 72 hours and receive psychiatric evaluation and treatment if treatment was deemed to be necessary, the patient got very tearful and very emotional. She said that she is carrying 18 credit hours a semester and she needs to be in class tomorrow. She also says that she has an interview for an multicultural internship program and she was very upset and she said that she had already reschedule that interview and that she could not reschedule it again. She said "I am probably going to lose that multicultural internship and it was really important to me". After being tearful and crying for a short period of time, the patient was able to engage in conversation and she was more appropriate, calmer, and able to talk about moving forward, an aftercare plan and even to talk about some medication options and she did say that she wanted to start new medications while she was here. The patient became more future oriented and was able to focus on getting herself back to a place where she could function more effectively in school and in her life in general. PAST PSYCHIATRIC HISTORY: Patient has been seeing Dr. Alli Malone at [facility], but she says that she has only seen him a couple of times. She has limited visits because her insurance, the [facility] plan that she has only cover 6 total treatments and she has divided those between her therapist, whose name is Ricky, whom she has seen once in January of 2017, and once in June of 2017, and Alli Malone, her prescriber, whom she has also seen twice. She says that her next appointment with Alli is on July 25, 2017. The patient states that she has never been in an inpatient psychiatric unit. She has never made a suicide attempt before. She says she has been in therapy in the past, before college she said she was in therapy for 10 years. She said it was helpful for her. She said that when she took Prozac that it initially worked well for her, but then she said that it started having side effects at higher doses, but she could not say what those were. She said that she also was prescribed Lexapro last semester, but she said the Lexapro made her feel like "shit." She said it did make her feel physically bad, but she said emotionally it made her feel worse. She said that she got started on Trintellex last semester, but she said when she went to get a refill, they told her that her co-pay would be 400 dollars, which she said she could not afford and so she just stopped taking it. She also did not follow up with Dr. Malone until June of this year, but she can't explain why, if she saw Dr. Malone a month ago, why he did not start her on a different anti depressant. So, it is not clear whether the patient is actually a reliable historian about that. ALLERGIES: The patient has no known drug allergies. CURRENT MEDICATION: The only medication the patient is currently taking his doxycycline, she takes 100 mg p.o. daily for acne. PAST MEDICAL HISTORY: The patient has asthma, but isn't currently taking any inhalers. PAST SURGICAL HISTORY: Patient had an appendectomy. No other surgical reasons. No other medical issues. ADMISSION LABS: White cell count is 7.90, hemoglobin 15.5, hematocrit 43.1, platelet count 250. Sodium 146, potassium 3.8, chloride 112, carbon dioxide 14 , anion gap is 20, BUN is 11, creatinine 0.8, glucose is 97, calcium 9.9. Beta HCG is negative. Urine drug screen is positive for cocaine. Negative for all other substances of abuse. Her blood alcohol level in the ED was 105. SOCIAL HISTORY: Patient's parents are , both live in [place]. The patient has an older brother and a younger half sister. The patient is very worried about her mother finding out she has been admitted to the hospital and getting upset. She asked the [employer]LC cutter inspector to contact her father instead of her mother to let him know that she was in the hospital. Patient denies any history of childhood abuse. In the summer of 2016, the patient miscarried a , on the day that she went to tell her boyfriend about it, he broke up with her. The patient says this is still very upsetting to her. She currently lives in an apartment with 1 roommate, who is a close personal friend, who brought her to the emergency department. She says that her main social supports are her parents and her roommate. 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 SUBSTANCE USE HISTORY: The patient states that she does not usually drink alcohol very often. She says she went out the night prior to admission drinking with friends and she said that is the first time that she had used cocaine in "a long time". But patient does not specify when her most recent use was. She denies smoking marijuana. She denies using any other substances and says that she does not "usually get drunk" and she said that it was very unusual for her to have "that many drinks" at one time, her BAL in the ED was 105. LEGAL HISTORY: Patient denies any legal issues. FAMILY HISTORY: Patient states that there is a history of alcohol on the father 's side of the family, but not her father. Her brother has severe anxiety and mother suffers from depression. She patient also has a maternal cousin who was diagnosed with bipolar. No other family history of mental illness or substance use. MENTAL STATUS EXAMINATION: Patient is a well-developed, well-groomed, young woman. She is seated at a table in the dining room. discharge coordinator Miriam is present. The patient is wearing sweat pants and a sweatshirt. She makes appropriate eye contact and is pleasant and cooperative during the interview. She is alert and oriented x4. Her speech rate and volume were both normal. Her speech is spontaneous and fluent. Her thought process is linear and goal directed. Her thought content reveals no evidence of psychosis or no signs or symptoms of sanford. The patient currently is denying feeling depressed. She denies sadness, helpless, hopelessness. She denies anhedonia, lack of motivation. She denies psychomotor retardation. She denies problems with her sleep or with her appetite. She does not endorse SI, HI. She denies any thoughts plans or intent to hurt herself or anyone else. She insists that when she cut her wrists that that she was not wanting to , that she was just doing it to make herself "feel better". Her intellect appears to be average, based upon education, occupational history and vocabulary. Her insight and judgment both appear to be poor. IMPRESSION: 1. Major depressive disorder, recurrent, severe, without psychotic features. 2. Alcohol use disorder, unknown severity. 3. Cocaine use disorder, unknown severity. 4. Psychosocial stressors include lack of social support, break-up with boyfriend 6 months ago, miscarriage last summer. PLAN OF TREATMENT: 1. Admit patient to Inpatient Behavioral Health Services Unit on an M1 hold. 2. Monitor closely for safety and on suicide precautions. The patient is able to contract for safety. She denies any thoughts, plans or intent to hurt herself or anyone else. 3. This MD reviewed the patient's prior experience with antidepressant medications. She has been on 3 antidepressant Prozac, Lexapro, and Trintellex. She had different responses to each one. The Prozac she said was helpful, but she just could not tolerate some of the side effects of higher doses. The Lexapro, she said made her feel "worse", and the Trintellex she said "worked really well", but she said she just could not afford it. The patient does have a friend who also suffers from depression and who takes Zoloft and the patient said that she had been talking to her friend about the benefits of that medication and she said that she would like a trial of Zoloft because she has trouble sleeping at night and she thought that the sedating side effects of the Zoloft would be good for her and she would also like to try a different SSRI. This MD did explain the risks, benefits, and side effects of the medication including the black box warning for people under the age of 24. MD also talked to the patient about her use of cocaine and alcohol. Patient insists it was a very rare time last night when she used both of those things. MD explained the drug interactions between SSRIs and alcohol, particularly the increased risk of seizure. Also talked about the length of time that it takes for the SSRIs to become fully effective. Patient is aware of that having been on SSRIs in the past. The patient is open to the idea of having longer-term therapy. She has been in therapy for 10 years in the past and appreciates having a regular therapist as an emotional support system and is willing to do group as well in order to address some of the trauma and loss that she has recently suffered with her miscarriage and break-up with her boyfriend and the fact that she does not have very strong social supports here in [place]. She says that she would be interested in the possibility of doing group therapy. 4. The patient did give informed consent to a trial of Zoloft. we will start 50 mg p.o. q.h.s. starting tonight. 5. Patient will attend groups and participate in milieu activities and we will continue to monitor and observe for mood related condition. 6. The patient is worried about her classes and falling behind in school, as this is one of her significant stressors. MD and career technical supervisor spent some time explaining how the career technical supervisor can work with the Department of the [employer] Academic [employer] and Student Affairs and that she will have a medical excuse on hospital stationary that she can provide to any professors and to her multicultural internship director if she wants to reschedule that appointment. 7. Estimated length of stay is 2-3 days. /[id number]/MODL MTDD
[2017-07-23] MEDS ORDERED: SERTRALINE HCL 50 MG TAB PO SCH (21:00)
[2017-07-23] MEDS: LORazepam 0.5 MG TAB PO PRN (21:50)
[2017-07-23] MEDS: MELATONIN 3 MG TAB PO PRN (21:50)
[2017-07-24 07:15] VITALS: BP 116/58; PULSE 72; RESP 16; TEMP 98
[2017-07-24] MEDS: DOXYCYCLINE HYCLATE 100 MG CAP/TAB PO SCH (10:30)
--- NOTE | 2017-07-24 14:17 | BDS ---
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 She has never been and has no children. Her parents are and both live in [place]. REASON FOR ADMISSION: Please see the admission psychiatric evaluation by Dr. Zuñiga, dated July 23, 2017. The patient was intoxicated with alcohol and had been using cocaine. She had cut her left arm and then she told a friend. Her friend then drove her to the emergency department for evaluation. In the ER , she was placed on an M1 hold, due to concern she was a danger to herself. BRIEF PAST PSYCHIATRIC HISTORY: she denies past suicide attempts, violence toward others, or past psychiatric hospitalizations. Episodic use of alcohol and cocaine. Reports past psychiatric medication trials with Fluoxetine, Lexapro, and Trintillex. BRIEF MEDICAL HISTORY: history of asthma. Intrauterine Device for contraception. Small laceration to left arm with sutures placed in ED on . HOSPITAL COURSE: The patient was admitted on M1 hold due to concern she was a danger to herself. On the unit, the patient reported that she had problems with chronic depression and anxiety for several years. She had not been taking any psychiatric medications for several months. She reports she was upset prior to drinking alcohol because a friend of hers started dating her ex- boyfriend. She reports chronic anxiety and depression 'and that just tipped me over the edge.' She had last been prescribed Trintellix but could not afford this medication as it was non formulary on her insurance plan. She had previously taken Lexapro and Prozac. The patient denied any history of sanford. She did report episodic alcohol and cocaine abuse. She also reports generalized anxiety, worrying about the future, worrying about her grades, worrying about her friends, worrying about her family. She also reported major depressive disorder symptoms, including low energy, low activity, anhedonia and feeling hopeless and overwhelmed for several years. The patient reports she was not having suicidal thoughts prior to drinking alcohol but, after drinking alcohol, she then developed brief suicidal thoughts and cut on her arm. On the unit, she denied any thoughts to harm herself and reported she regretted her behavior. She reports she wanted to live for herself, her friends, and her parents. Both her mother and her father live in [place]. She contacted them and spoke to them on the phone. She also spoke to her friends. She was able to complete a safety plan on the unit. On the unit, she did not appear to have any bipolar disorder symptoms and denied past suicide attempts prior to the self-harm that occurred prior to the current admission. She was calm and appropriate, able to attend groups, eating well, and sleeping well. She was started on Zoloft for depression. She was given information from the [employer] [facility] on the risks of Zoloft, including the risk of suicidality, defects, miscarriage, bipolar disorder symptoms, drug interactions, and serotonin syndrome. We reviewed a handout on Borderline Personality Disorder, and the patient endorsed the following symptoms: feeling empty, lack of direction, difficulty managing intense emotions related to interpersonal conflict and feeling rejected by friends, feeling self- destructive when upset with other people, and recurrent interpersonal hypersensitivity. The patient tolerated Zoloft without side effects. She was calm and appropriate on the unit, completed her safety plan, reported that she was hopeful for the future, and was willing to get outpatient treatment after discharge. CONSULTS: The patient was seen by the hospitalist on July 23, 2017. PROCEDURES: None. LABS: July 22: She had a white blood cell count 7.9, hemoglobin 15.5, platelet count 250. Sodium 146, potassium 3.8, creatinine 0.8, glucose 97, calcium 9.9. Serum beta HCG was negative. Urine drug screen was positive for cocaine and alcohol level 105. CONDITION ON DISCHARGE: She is alert white female in no acute distress. Is ambulatory, cooperative, pleasant. Her speech is regular rate and rhythm. Her mood is "pretty good." Her affect is euthymic and pleasant. Her thoughts are organized. She denies thoughts to hurt herself or others. She denies paranoia or hallucinations. She has fair insight and appropriate judgment. DISCHARGE DIAGNOSES: Major depressive disorder, recurrent, severe, without psychotic features. Generalized anxiety disorder. Rule out Adjustment Disorder or Borderline personality disorder. Rule out alcohol use disorder. Rule out stimulant use disorder. Intrauterine device for contraception. Laceration to left forearm. History of asthma. History of an appendectomy. DISCHARGE MEDICATIONS: Zoloft 50 mg by mouth daily. Melatonin 3 mg by mouth at bedtime p.r.n. for insomnia. OTHER DISCHARGE INSTRUCTIONS: She should see a primary care doctor in 10 days to have sutures removed from her left arm. She was also given written instructions to have this doctor check a TSH to rule out hypothyroidism contributing to her symptoms. DISPOSITION: The patient is leaving the unit independently to return home to her dorm. The patient's prescriptions were written to be dispensed in a bubble pack. FOLLOWUP: The patient has an intake appointment in 2 days with a care transitions nurse at [facility]. LEGAL STATUS: She was admitted on an M1 hold but will be discharged to receive outpatient treatment on a voluntary basis. /[id number]/MODL MTDD
== END 2017-07-24 13:55 | disposition home or self-care (01) | DRG 885 ==
LOC: BBEH 14:20
PROVIDERS: ADMIT Psychiatry & Neurology Psychiatry; ATTEND Psychiatry & Neurology Psychiatry
PROC: 0HQEXZZ Repair Left Lower Arm Skin, External Approach (ICD-10-PCS; principal; 2017-07-22)
DX: F33.2 Major depressive disorder, recurrent severe without psychotic features (principal); S51.812A Laceration without foreign body of left forearm, initial encounter; X78.8XXA Intentional self-harm by other sharp object, initial encounter; Y92.009 Unspecified place in unspecified non-institutional (private) residence as the place of occurrence of the external cause; F10.129 Alcohol abuse with intoxication, unspecified; F14.90 Cocaine use, unspecified, uncomplicated; Z91.120 Patient's intentional underdosing of medication regimen due to financial hardship; F41.9 Anxiety disorder, unspecified
CPT/HCPCS: 80305; G0480

== ENCOUNTER 2017-08-19 20:41 | Emergency (ER) | payer BC ==
--- NOTE | 2017-08-19 20:44 | EDPHY ---
HPI/HX/ROS/PE/MDM - Data Points Imaging: Discussed imaging studies w/ banquet server on call Radiologist, I viewed and interpreted images myself Narrative: CHIEF COMPLAINT: Polypharmacy OD HISTORY OF PRESENT ILLNESS: The patient is a 22 y/o female with a history of depression and SI arriving emergently via EMS for a polypharmacy overdose. When EMS arrived there was an empty bottle of Prozac (60 count) and Celexa. Per her roommates, she was not taking these as prescribed. Her friends believe she took more pills than what was on scene. EMS gave her 1mg Narcan. While en route to the hospital, she became unresponsive and bradycardic. She also had a run of V-tach on the monitor. She started breathing again upon arrival to the hospital and is responsive. She now states that the she drank alcohol and used cocaine today. She is also stating that "no one cares about her". No fever, chills, chest pain, shortness of breath, palpitations, vomiting, diarrhea, urinary complaints, headache, lightheadedness. REVIEW OF SYSTEMS: Limited secondary to the patient's clinical condition. She is somewhat somnolent, reluctant to answer questions, tearful. PAST MEDICAL HISTORY: Depression, migraines, asthma SOCIAL HISTORY: Student at , originally from [place], [employer] VITAL SIGNS: Reviewed by me GENERAL: Tearful, smells of alcohol, answering simple questions.. HEENT: Atraumatic. Eyes: No icterus, no injection. Dry blood at the nares. Mouth: moist mucous membranes. No erythema or lesions. Neck: supple with no adenopathy. LUNGS: Clear to auscultation bilaterally, no wheezes, rhonchi or rales. CARDIAC: Regular rate and rhythm, no rubs, murmurs or gallops. ABDOMEN: Soft, nontender, nondistended, bowel sounds normal. BACK: No CVA tenderness. EXTREMITIES: No trauma. No edema. Range of motion is normal throughout. NEURO: Alert and oriented to person and place, grossly nonfocal. SKIN: Warm and dry, no rash. PSYCHIATRIC: Normal mentation, no agitation. Portions of this note were transcribed by a coroner/medical examiner. I personally performed a history, physical exam, medical decision making, and confirmed accuracy of information the transcribed note. (Manda Chavez) ED Course: The patient is a 22 y/o female arriving emergently via EMS for a polypharmacy overdose. She admits to using cocaine and drinking alcohol today. Labs, EKG, and head CT ordered. 2038: 12-LEAD EKG: Please see the full report in [facility]. My interpretation: Sinus rhythm with a rate of 85 2109: Patient will be placed on an M1 hold by myself as she is suicidal. 2138: Spoke with radiologist, patient's head CT is negative. 2214: Patient's chest x-ray and labs are normal. UA still pending. 8: Patient's urine tox is positive for cocaine. 2330: I reassessed the patient. She reports that she has been feeling very sad. She again reports only drinking alcohol using cocaine tonight. She is having suicidal ideation. She denies having a plan. I do not believe patient is safe to be discharged until she is evaluated by mental health. She has been medically cleared. 0000: Patients care assumed by Dr Del Toro. (Manda Chavez) MDM: After the history was obtained and physical exam performed, the following differential for the patient's altered mental status was considered included but was not limited to hypoglycemia, electrolyte disturbances, intracranial hemorrhage, tumor, drug or alcohol intoxication, stroke, or TIA. (Manda Chavez ) 0614: No acute events overnight. Patient has been resting and sleeping. No evidence of cardiac arrhythmia on the monitor. Stable vital signs. Signed over to Dr. Chi at 7am Shift-change. Pending placement. (Yogesh Del Toro) This patient has been accepted at [facility] for her suicidal attempt with overdose. She is stable for transfer I filled out the appropriate paperwork (Ruslan Chi) - Data Points Laboratory Results: Laboratory Results 08/19/17 20:30 08/19/17 20:30 08/19/17 22:00 Urine Color YELLOW Urine Appearance HAZY Urine pH 5.0 (5.0-7.5) Ur Specific [place] 1.018 (1.002-1.030) Urine Protein NEGATIVE (NEGATIVE) Urine Ketones NEGATIVE (NEGATIVE) Urine Blood 1+ H (NEGATIVE) Urine Nitrate NEGATIVE (NEGATIVE) Urine Bilirubin NEGATIVE (NEGATIVE) Urine Urobilinogen NEGATIVE EU EU (0.2-1.0) Ur Leukocyte Esterase NEGATIVE (NEGATIVE) Urine RBC 1-3 /hpf /hpf (0-3) Urine WBC 1-3 /hpf /hpf (0-3) Ur Epithelial Cells 3+ /lpf H /lpf (NONE-1+) Urine Mucus TRACE /lpf /lpf (NONE-1+) Urine Glucose NEGATIVE (NEGATIVE) Urine Opiates Screen NEGATIVE (NEGATIVE) Urine Barbiturates NEGATIVE (NEGATIVE) Ur Phencyclidine Scrn NEGATIVE (NEGATIVE) Ur Amphetamine Screen NEGATIVE (NEGATIVE) U Benzodiazepines Scrn NEGATIVE (NEGATIVE) Urine Cocaine Screen NON-NEGATIVE H (NEGATIVE) U Marijuana (THC) Screen NEGATIVE (NEGATIVE) Medications Given: Discontinued Medications Ondansetron HCl (Zofran) 4 mg IVP EDNOW ONE Stop: 08/19/17 22:38 Last Admin: 08/19/17 22:44 Dose: 4 mg General Time Seen by Provider: 08/19/17 20:42 Initial Vital Signs: Initial Vital Signs O2 Sat (%) 99 08/19/17 20:41 O2 Delivery Mode Room Air O2 (L/minute) 2 Allergies/Adverse Reactions: No Known Allergies Allergy (Unverified 07/22/17 04:31) Home Medications: Medication Instructions Recorded Melatonin [Melatonin 3 MG (*)] 3 - 6 mg PO HS PRN tab 07/24/17 Sertraline HCl [Zoloft 50mg (*)] 50 mg PO HS #30 tab 07/24/17 Departure - Departure Disposition: Other Psych, Not [place] Clinical Impression: Polysubstance abuse Major depressive disorder Qualifiers: Major depression recurrence: recurrent Active/Remission status: currently active Major depression episode severity: moderate Qualified Code(s): F33.1 - Major depressive disorder, recurrent, moderate Condition: Fair Referrals: NONE *PRIMARY CARE P,. [Primary Care Provider] - As per Instructions Report Scribed for: Manda Chavez Report Scribed by: Janeth Bagley Date of Report: 08/19/17 Time of Report: 20:44
--- NOTE | 2017-08-19 20:49 | CPEKG ---
Heart Rate: 85 RR Interval: 706 P-R Interval: 148 QRSD Interval: 80 QT Interval: 408 QTC Interval: 486 P [place]: 67 QRS [place]: 33 T Wave [place]: 44 EKG Severity - BORDERLINE ECG - EKG Impression: SINUS RHYTHM EKG Impression: BORDERLINE PROLONGED QT INTERVAL Electronically Signed By: Tamara Kirby 19-Aug-2017 21:08:41
[2017-08-19 20:51] LABS: PLATELET COUNT 265 10^3/uL (150-400)
[2017-08-19] MEDS ORDERED: ONDANSETRON 4 MG/2 ML VIAL IVP ONE (22:37)
[2017-08-20 07:12] VITALS: RESP 18
[2017-08-20 10:17] VITALS: BP 122/74; PULSE 82; TEMP 97.3; O2SAT 97
== END 2017-08-20 10:59 ==
PROC: GZ11ZZZ Psychological Tests, Personality and Behavioral (ICD-10-PCS; principal; 2017-08-19)
DX: F19.10 Other psychoactive substance abuse, uncomplicated (principal); F33.1 Major depressive disorder, recurrent, moderate; J45.909 Unspecified asthma, uncomplicated
CPT/HCPCS: 80305; 96374; G0480; J2405